=== PATIENT | female | born 1945 | race Caucasian/White ===

== ENCOUNTER 2019-01-30 11:00 | Emergency (ER) | payer OTHER ==
[~2019-01-30] VITALS: Ht 157.5 cm; Wt 56.2 kg
[2019-01-30 11:07] VITALS: Ht 157.5 cm; Wt 56.2 kg
[2019-01-30 11:37] LABS: microscopic required? YES; urine erythrocyte 3+ (NEGATIVE)
[2019-01-30 12:05] VITALS: BP 150/78
== END 2019-01-30 12:05 | disposition home or self-care (01) ==
LOC: ED 11:00
PROVIDERS: Specialist
DX: N39.0 Urinary tract infection, site not specified (principal)
CPT/HCPCS: J0696

== ENCOUNTER 2019-05-13 08:43 | Emergency (ER) | payer OTHER ==
[~2019-05-13] VITALS: Ht 160 cm; Wt 77.1 kg
[2019-05-13 08:43] VITALS: Ht 160 cm; Wt 77.1 kg
== END 2019-05-13 13:05 | disposition expired ==
LOC: ED 08:43
DX: I46.9 Cardiac arrest, cause unspecified (principal); Z90.710 Acquired absence of both cervix and uterus